=== PATIENT | female | born 1935 | race Caucasian/White ===

== ENCOUNTER → 2017-01-30 | Outpatient (CLI) | payer OTHER | LOC: BHFA 10:45 | PROVIDERS: ATTEND Internal Medicine | DX: I50.9 Heart failure, unspecified (principal) ==

== ENCOUNTER → 2017-12-27 | Outpatient (CLI) | payer OTHER | LOC: BHLMT 10:45 | PROVIDERS: ATTEND Internal Medicine Interventional Cardiology | DX: I48.91 Unspecified atrial fibrillation (principal); I25.10 Atherosclerotic heart disease of native coronary artery without angina pectoris | CPT/HCPCS: 93306-PO ==

== ENCOUNTER 2018-04-27 06:19 | Emergency (ER) | payer OTHER ==
[2018-04-27 06:31] VITALS: BP 172/78
--- NOTE | 2018-04-27 06:50 | EDPHY ---
H & P Stated Complaint: AWOKE WITH LUMP IN BACK OF THROAT, SCRATCHY THROAT SINCE YEST , COUGHING X3 Time Seen by Provider: 04/27/18 06:49 - Personal History Current Tetanus/Diphtheria Vaccine: Unsure - Medical/Surgical History Hx Asthma: No Hx Chronic Respiratory Disease: Yes Hx Diabetes: No Hx Cardiac Disease: Yes Hx Renal Disease: No Hx Cirrhosis: No Hx Alcoholism: No Hx HIV/AIDS: No Hx Splenectomy or Spleen Trauma: No Other PMH: HTN, afib, cardioversions in March and May 2014, November 2014, ablation November 2014, pacemaker insertion on 12/16/14, hyperlipidemia, congestive heart failure, coronary artery disease, 6 vessel CABG in 1994, pulmonary hypertension, nodule on thyroid/left, partial thyroidectomy, hysterectomy at age 46, tonsillectomy at age [age], cholecystecomy in 2009 - Social History Smoking Status: Former smoker Constitutional: Initial Vital Signs Temperature (C) 36.6 C 04/27/18 06:25 Heart Rate 80 04/27/18 06:25 Respiratory Rate 26 H 04/27/18 06:25 Blood Pressure 172/78 H 04/27/18 06:25 O2 Sat (%) 92 04/27/18 06:25 O2 Delivery Mode Room Air O2 (L/minute) 2 Allergies/Adverse Reactions: No Known Allergies Allergy (Verified 04/27/18 06:22) Home Medications: Medication Instructions Recorded Levothyroxine [Synthroid 200 mcg 200 mcg PO DAILY06 12/02/14 (*)] amLODIPine BESYLATE [Norvasc 10 mg 10 mg PO HS 12/02/14 (*)] Demadex 04/27/18 Eliquis 04/27/18 Statin 04/27/18 Vitamin D3 04/27/18 Medical Decision Making ED Course/Re-evaluation: CHIEF COMPLAINT: Lump in back of throat HISTORY OF PRESENT ILLNESS: 82-year-old female who said she felt a bit of a scratchy throat last night before going to bed. She denies fevers or chills. She denies any systemic illness. She says she has coughed off and on a little bit for a day or 2 but nothing significant. She just feels a lump or glob in the back of her throat that is sometimes there and sometimes not. She tries to cough it out and can't get rid of it. She came to get it checked out. REVIEW OF SYSTEMS: A comprehensive 10 system review of systems is otherwise negative aside from elements mentioned in the history of present illness and medical decision making. PHYSICAL EXAM: HR, BP, O2 Sat, RR. Temp noted General Appearance: Alert, well hydrated, appropriate, and non-toxic appearing. Head: Atraumatic without scalp tenderness or obvious injury Eyes: Pupils equal, round, reactive to light and accommodation, EOMI, no trauma , no injection. Ears: Clear bilaterally, no perforation, normal landmarks Nose: Atraumatic, no rhinorrhea, clear. Throat: There is no erythema or exudates, no lesions, normal tonsils, mucus membranes moist. However, she does have a significantly enlarged uvula. Neck: Supple, 2+ carotid upstroke, nontender, no lymphadenopathy. Respiratory: No retractions, no distress, mild rhonchi diffuse with some expiratory wheeze very mild, and no accessory muscle use. Cardiovascular: Regular rate and rhythm, no murmurs, rubs, or gallops. Bilateral carotid, radial, dorsalis pedis, and posterior tibial pulses intact. Good capillary refill all extremities. Gastrointestinal: Abdomen is soft, nontender, non-distended, no masses, no rebound, no guarding, no peritoneal signs. Musculoskeletal: Normal active ROM of all extremities, atraumatic. Neurological: Alert, appropriate, and interactive. The patient has normal DTRs and non-focal cranial nerves, motor, sensory, and cerebellar exam. Skin: No rashes, good turgor, no nodules on palpation. Past medical history: Significant past medical history all noted from the prior charts Past surgical history: Noted prior chart Family history: Noncontributory Social history: , retired, family the area, does not abuse tobacco drugs or alcohol DIFFERENTIAL DIAGNOSIS: Includes but is not limited to: Viral pharyngitis, tonsillitis, peritonsillar abscess, retropharyngeal abscess, uvulitis, bronchitis MEDICAL DECISION MAKING: This patient is in no distress. She has a mildly inflamed uvula. I have given her 40 mg of prednisone as 1 time dose. She will use Mucinex for what is a very mild bronchitis. She will see her doctor in the next 1-2 days. She is not systemically ill. Departure - Departure Disposition: Home, Routine, Self-Care Clinical Impression: Uvulitis, Bronchitis Condition: Good Instructions: Strep Throat (ED), Acute Bronchitis (ED), Uvulitis (ED) Additional Instructions: 1. Take Mucinex. 2. Drink plenty of fluid 3. Follow up with your primary care physician within 72 hours for reevaluation. 4. Return to the emergency department immediately for high fever, severe headache or neck pain, difficulty breathing, abdominal pain, rash or other worsening of condition. Referrals: [facility],. [Clinic] - As per Instructions
[2018-04-27] MEDS ORDERED: predniSONE 20 MG TAB PO ONE (07:03)
== END 2018-04-27 07:24 | disposition home or self-care (01) ==
DX: K12.2 Cellulitis and abscess of mouth (principal); J40 Bronchitis, not specified as acute or chronic; I10 Essential (primary) hypertension; I48.91 Unspecified atrial fibrillation; Z87.891 Personal history of nicotine dependence
CPT/HCPCS: 99283; J7512

== ENCOUNTER → 2018-05-13 | Outpatient (CLI) | payer OTHER | LOC: CIMAGING 15:45 | PROVIDERS: ATTEND Internal Medicine | DX: J18.9 Pneumonia, unspecified organism (principal); I50.9 Heart failure, unspecified; Z95.0 Presence of cardiac pacemaker | CPT/HCPCS: 71046-PO ==

== ENCOUNTER → 2018-05-19 | Outpatient (CLI) | payer OTHER | LOC: CIMAGING 13:55 | PROVIDERS: ATTEND Internal Medicine | DX: J18.9 Pneumonia, unspecified organism (principal) | CPT/HCPCS: 71046-PO ==

== ENCOUNTER → 2018-06-04 | Outpatient (CLI) | payer OTHER | END | disposition home or self-care (01) | LOC: CIMAGING 12:37 | PROVIDERS: ATTEND Internal Medicine | DX: J18.9 Pneumonia, unspecified organism (principal) | CPT/HCPCS: 71046-PO ==

== ENCOUNTER → 2018-08-18 | Outpatient (CLI) | payer OTHER | LOC: CIMAGING 16:49 | PROVIDERS: ATTEND Internal Medicine | DX: I50.9 Heart failure, unspecified (principal); J90 Pleural effusion, not elsewhere classified; R91.8 Other nonspecific abnormal finding of lung field | CPT/HCPCS: 36415-PO; 71046-PO ==

== ENCOUNTER → 2018-08-21 | Outpatient (CLI) | payer OTHER | LOC: CIMAGING 11:00 | PROVIDERS: ATTEND Internal Medicine | DX: J90 Pleural effusion, not elsewhere classified (principal); I51.7 Cardiomegaly; J98.11 Atelectasis | CPT/HCPCS: 71250-PO ==